=== PATIENT | female | born 1965 | race Caucasian/White ===

== ENCOUNTER → 2017-05-10 | Outpatient (CLI) | payer OTHER ==
--- NOTE | 2017-05-10 09:02 | RAD ---
Examination: Ultrasound kidneys History: History of right-sided abdominal pain, history of stones, hematuria Comparison: None available Findings: The right kidney measures 11.3 x 5.0 x 3.9 cm. The left kidney measures 10.6 x 5.1 x 5.6 cm. Multiple small echogenicities identified in the right kidney likely intrarenal collecting system calculi the largest measuring 4 mm in the right kidney and largest measuring 4 mm in the left kidney. No evidence of hydronephrosis. Urinary bladder is mildly distended. Impression: Multiple subcentimeter bilateral intrarenal collecting system calculi.
== END | disposition home or self-care (01) ==
LOC: US 07:52
PROVIDERS: ATTEND Urology
DX: N20.2 Calculus of kidney with calculus of ureter (principal); N32.89 Other specified disorders of bladder
CPT/HCPCS: 76770